=== PATIENT | male | born 1980 | race Caucasian/White ===

== ENCOUNTER 2020-09-20 03:43 | Emergency (ER) | payer MEDICAID, OTHER ==
[~2020-09-20] VITALS: Ht 172.7 cm; Wt 62.0 kg
--- NOTE | 2020-09-20 04:15 | NUR ---
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 awaiting erp eval
[2020-09-20] MEDS ORDERED: BUPIVACAINE 0.25% ONE (04:47)
[2020-09-20] MEDS ORDERED: LIDOCAINE-MPF 1%, 5ML ONE (04:47)
[2020-09-20] MEDS ORDERED: LIDOCAINE-MPF 1%, 5ML INFIL ONE (05:00)
[2020-09-20] MEDS ORDERED: BUPIVACAINE 0.25% INFIL ONE (05:00)
[2020-09-20 06:00] VITALS: BP 118/72
--- NOTE | 2020-09-20 06:13 | NUR ---
I AND D DONE BY ERP, PLAIN PACKING PLACED. DRESSED BY THIS RN, PT UNDERSTANDING OF DISCHARGE INSTRUCTIONS
== END 2020-09-20 06:15 | disposition home or self-care (01) ==
LOC: ED 05:03
DX: L02.11 Cutaneous abscess of neck (principal); F17.210 Nicotine dependence, cigarettes, uncomplicated; Z90.49 Acquired absence of other specified parts of digestive tract
CPT/HCPCS: 10060; 99283; 99406

== ENCOUNTER 2020-09-28 04:47 | Emergency (ER) | payer MEDICAID ==
[~2020-09-28] VITALS: Ht 165.1 cm; Wt 63.0 kg
[2020-09-28 04:49] VITALS: BP 129/88
--- NOTE | 2020-09-28 04:55 | NUR ---
INITIAL PT CONTACT. PT PRESENTS TO ED FOR WOUND RECHECK, RECENT I+D ON NECK. "I NEED A RX FOR ABX BECAUSE THE PILLS WERE STOLEN WITH SOME OF MY STUFF. I TOOK ABOUT 4 DAYS OF BOTH ABX". PT ALSO C/O RIGHT UPPER DENTAL PAIN. PT SITTING UPRIGHT ON GUGUADALUEP, MARIUSZ, VSS. SIGNIFICANT OTHER AT BEDSIDE. AWAITING ERP
--- NOTE | 2020-09-28 05:02 | NUR ---
ERP AT BEDSIDE
[2020-09-28] MEDS ORDERED: KETOROLAC 30 MG/1 ML ONE (05:07)
[2020-09-28] MEDS ORDERED: KETOROLAC 30 MG/1 ML IM ONE (05:30)
== END 2020-09-28 05:31 | disposition home or self-care (01) ==
LOC: ED 05:12
DX: L02.11 Cutaneous abscess of neck (principal); K02.9 Dental caries, unspecified; F17.210 Nicotine dependence, cigarettes, uncomplicated; Z90.89 Acquired absence of other organs
CPT/HCPCS: 96372; 99283; J1885

== ENCOUNTER 2021-01-11 16:48 | Inpatient (IN) | payer MEDICAID ==
[~2021-01-11] VITALS: Ht 170.2 cm; Wt 47.2 kg
[2021-01-11] MEDS ORDERED: LIDOCAINE-MPF 1%, 5ML INFIL ONE (17:30)
[2021-01-11] MEDS ORDERED: CLINDAMYCIN PMX 900MG/50ML 50 ML IVPB ONE (17:30)
[2021-01-11] MEDS ORDERED: SODIUM CHLORIDE FLUSH 10ML SYR IVF ONE (17:30)
[2021-01-11] MEDS ORDERED: SODIUM CHLORIDE 0.9% 1,000ML IVBOLUS ONE (17:30)
[2021-01-11 18:01] LABS: MEAN CORPUSCULAR HEMOGLOBIN 27.7 pg (27.5-34.5); MEAN CORPUSCULAR HGB CONC 34.3 g/dL (33.2-36.2); MEAN PLATELET VOLUME 6.7 fL (7.4-10.4); PLATELET COUNT 475 x10^3/uL (130-400); RED BLOOD COUNT 4.14 x10^6/uL (4.38-5.82); RED CELL DISTRIBUTION WIDTH 14.5 % (9.4-14.8)
[2021-01-11 18:11] LABS: ALBUMIN 3.1 g/dL (3.4-5.0); ANION GAP 8 mmol/L (5-15); CALCIUM 8.8 mg/dL (8.5-10.1); CHLORIDE 101 mmol/L (98-107)
[2021-01-11 18:12] LABS: CREATININE 0.68 mg/dL (0.7-1.3)
[2021-01-11 18:30] LABS: <PLATELET ESTIMATE> INCREASED; <PLT MORPHOLOGY> NORMAL PLT MORPH; ANISOCYTOSIS 1+; BANDS%(MANUAL) 3 % (0-7); BASOS#(MANUAL) 0.17 x10^3/uL (0-0.1); BASOS% (MANUAL) 1 % (0-1); LYMPH#(MANUAL) 1.51 x10^3/uL (1-3.4); LYMPHS% (MANUAL) 9 % (22-44); MONOS#(MANUAL) 1.01 x10^3/uL (0.3-2.7); MONOS% (MANUAL) 6 % (2-9); OVALOCYTES 1+; POLYCHROMASIA 1+; SEG#(MANUAL) 13.61 x10^3/uL (1.8-6.8); SEGS% (MANUAL) 81 % (42-75)
[2021-01-11] MEDS ORDERED: LIDOCAINE-MPF 1%, 5ML ONE (18:30)
[2021-01-11] MEDS ORDERED: CLINDAMYCIN PMX 900MG/50ML 50 ML ONE (18:30)
--- NOTE | 2021-01-11 19:05 | NUR ---
PIV PLACED BY TASK RN. IVF RUNNING. IVF ABX STARTED, 2 SETS BLOOD CX COLLECTED PRIOR TO ADMIN. ERMD RESIDENT AT BEDSIDE FOR ASSESSMENT.
--- NOTE | 2021-01-11 19:51 | NUR ---
PT AT CT
[2021-01-11] MEDS ORDERED: OMNIPAQUE 350 MG/ML, 100ML BOTTLE ONE (20:00)
[2021-01-11] MEDS ORDERED: DIPH,PERTUSS(ACELL),TET VAC/PF 0.5 ML IM-VACC ONE (20:17)
[2021-01-11] MEDS ORDERED: morphine SULFATE 10 MG/ML, 1ML ONE (20:17)
[2021-01-11] MEDS ORDERED: DIPH,PERTUSS(ACELL),TET VAC/PF NC IM-VACC ONE (20:30)
[2021-01-11] MEDS ORDERED: morphine SULFATE 10 MG/ML, 1ML IVPush ONE (20:30)
[2021-01-11] MEDS ORDERED: PROPOFOL 10 MG/ML, 20ML IVPush ONE ×2 (21:30→23:30)
[2021-01-11] MEDS ORDERED: PROPOFOL 10 MG/ML, 20ML ONE ×2 (21:40)
--- NOTE | 2021-01-11 21:59 | NUR ---
CONSENT SIGNED FOR PROCEDURAL SEDATION TO COMPLETE I&D LEFT SHOULDER. ROOM SET UP, SUCTION ON, BVM, CRASH CART AT BEDSIDE. PIV PATENT, IVF RUNNING AT TKO AT THIS TIME.
--- NOTE | 2021-01-11 22:52 | NUR ---
KEKE YAS AT BEDSIDE ADMIN PROPOFOL, TOTALY 360MG. ERMD RESIDENT CAREY PERFORMED I&D. THIS RN AT BEDSIDE MONITORED PT. SEE PROCEDURAL SEDATION PACKET FOR MORE DETAILED INFORMATION. PT STILL UNAROUSABLE AND STABLE VITALS. PT CONTINUES TO BE CONNECTED TO ALL MONITORING AND 1:1 OBSERVATION.
--- NOTE | 2021-01-11 23:24 | NUR ---
RECEIVED REPORT FROM OFFGOING RN, AND PT MOVED TO TRAUMA 2 ROOM, FOR CLOSER OBSERVATION. PT AT THIS TIME, IS ABLE TO LIFT HEAD IN BED, AND TALK WITH RN. PT IS CAOX3, AND KNOWS WHERE HE IS, HIS NAME, AND THE DATE. NO DISTRESS, AND AIRWAY INTACT, AND GOOD AEARATION AND OXYGENATION. SEDATION PAPERWORK COMPLETED AND PT OFF OF SEDATION PROCEDURE NOW. AND BACK TO COMPUTER CHARTING. PT REMAINS ON CR MONITOR, CALL LIGHT WITHIN REACH, AND SIDERAILS UP X2.
--- NOTE | 2021-01-12 00:04 | NUR ---
PT TRANSFERRED TO FLOOR VIA GURNEY, NO ACUTE DISTRESS.
[2021-01-12 00:18] VITALS: BP 154/76
[2021-01-12] MEDS ORDERED: ACETAMINOPHEN 325 MG TABLET PO PRN (00:30)
[2021-01-12] MEDS ORDERED: ONDANSETRON ODT 4 MG PO PRN (00:30)
[2021-01-12] MEDS ORDERED: POLYETHYLENE GLYCOL 17 GM PACKET PO PRN (00:30)
[2021-01-12] MEDS ORDERED: BISACODYL 10 MG SUPP PR PRN (00:30)
[2021-01-12] MEDS ORDERED: KETOROLAC 30 MG/1 ML IM PRN (00:30)
[2021-01-12] MEDS ORDERED: ALPR-585 PO (00:34)
[2021-01-12] MEDS: SODIUM CHLORIDE 0.9% 1,000 ML IV SCH ×4 (01:08→21:15)
[2021-01-12] MEDS: HEPARIN 5,000 UNITS/ML, 1ML SQ SCH ×3 (01:09→17:24)
[2021-01-12] MEDS: morphine SULFATE 10 MG/ML, 1ML IVPush PRN ×5 (01:09→21:15)
[2021-01-12] MEDS ORDERED: CLINDAMYCIN PMX 600MG/50ML 50 ML IV SCH (03:00)
[2021-01-12 03:04] VITALS: BP 154/72
[2021-01-12 07:16] VITALS: BP 146/85
[2021-01-12] MEDS ORDERED: METHADONE 10 MG TABLET PO SCH (09:00)
[2021-01-12] MEDS ORDERED: VANCOMYCIN PER PHARMACY MC PRN (09:00)
[2021-01-12] MEDS: SENNA/DOCUSATE TABLET PO SCH (09:28)
[2021-01-12] MEDS ORDERED: PHARMACOKINETIC MONITORING MC PRN (10:00)
[2021-01-12] MEDS ORDERED: VANCOMYCIN 1,200 MG in SODIUM CHLORIDE 0.9% 250 ML IV ONE (10:00)
[2021-01-12] MEDS ORDERED: PHARMACOKINETIC CONSULTATION MC ONE (10:00)
[2021-01-12] MEDS: AMPICILLIN/SULBACTAM 3 GM in SODIUM CHLORIDE 0.9% 100 ML IV SCH ×2 (13:03→17:24)
[2021-01-12 14:48] VITALS: BP 137/90
[2021-01-12 19:02] VITALS: BP 109/67
[2021-01-12] MEDS: VANCOMYCIN 1,000 MG in SODIUM CHLORIDE 0.9% 100 ML IV SCH (22:59)
[2021-01-13 01:03] VITALS: BP 113/72
[2021-01-13] MEDS: HEPARIN 5,000 UNITS/ML, 1ML SQ SCH ×3 (01:03→18:19)
[2021-01-13] MEDS: morphine SULFATE 10 MG/ML, 1ML IVPush PRN ×5 (04:02→20:27)
[2021-01-13] MEDS: SODIUM CHLORIDE 0.9% 1,000 ML IV SCH ×2 (05:37→16:00)
[2021-01-13] MEDS: AMPICILLIN/SULBACTAM 3 GM in SODIUM CHLORIDE 0.9% 100 ML IV SCH ×5 (05:37→18:19)
[2021-01-13 06:11] LABS: BASOPHILS % (AUTO) 1 % (0-1); EOSINOPHILS % (AUTO) 4 % (1-7); LYMPHOCYTES % (AUTO) 31 % (22-44); MEAN CORPUSCULAR HEMOGLOBIN 28.1 pg (27.5-34.5); MEAN CORPUSCULAR HGB CONC 34.6 g/dL (33.2-36.2); MEAN PLATELET VOLUME 6.8 fL (7.4-10.4); MONOCYTES % (AUTO) 11 % (2-9); NEUTROPHILS % (AUTO) 54 % (42-75); PLATELET COUNT 396 x10^3/uL (130-400); RED BLOOD COUNT 3.64 x10^6/uL (4.38-5.82); RED CELL DISTRIBUTION WIDTH 14.3 % (9.4-14.8)
[2021-01-13] MEDS: SENNA/DOCUSATE TABLET PO SCH (08:27)
[2021-01-13] MEDS: METHADONE 40 MG TABLET.SOL PO SCH (08:27)
[2021-01-13 09:13] VITALS: BP 118/73
[2021-01-13] MEDS: VANCOMYCIN 1,000 MG in SODIUM CHLORIDE 0.9% 100 ML IV SCH ×2 (10:29→22:41)
[2021-01-13] MEDS: ALPRazolam 1MG TAB PO PRN (12:30)
[2021-01-13 15:18] VITALS: BP 109/73
[2021-01-13 19:29] VITALS: BP 104/67
[2021-01-14] MEDS: AMPICILLIN/SULBACTAM 3 GM in SODIUM CHLORIDE 0.9% 100 ML IV SCH ×5 (00:06→23:50)
[2021-01-14 00:10] VITALS: BP 106/70
[2021-01-14] MEDS: ALPRazolam 1MG TAB PO PRN ×2 (00:52→13:48)
[2021-01-14] MEDS: morphine SULFATE 10 MG/ML, 1ML IVPush PRN ×5 (00:53→23:50)
[2021-01-14] MEDS: SODIUM CHLORIDE 0.9% 1,000 ML IV SCH ×3 (00:53→20:08)
[2021-01-14] MEDS: HEPARIN 5,000 UNITS/ML, 1ML SQ SCH ×4 (00:53→22:40)
[2021-01-14 06:54] VITALS: BP 133/87
[2021-01-14] MEDS: SENNA/DOCUSATE TABLET PO SCH (08:40)
[2021-01-14] MEDS: METHADONE 40 MG TABLET.SOL PO SCH (09:45)
[2021-01-14] MEDS: VANCOMYCIN 1,000 MG in SODIUM CHLORIDE 0.9% 100 ML IV SCH ×2 (10:59→22:40)
[2021-01-14 14:26] VITALS: BP 122/79
[2021-01-14 19:16] VITALS: BP 108/72
[2021-01-15 01:51] VITALS: BP 124/80
[2021-01-15] MEDS: AMPICILLIN/SULBACTAM 3 GM in SODIUM CHLORIDE 0.9% 100 ML IV SCH ×2 (05:50→12:23)
[2021-01-15] MEDS: morphine SULFATE 10 MG/ML, 1ML IVPush PRN (06:26)
[2021-01-15 06:42] LABS: CREATININE 0.56 mg/dL (0.7-1.3)
[2021-01-15 07:15] VITALS: BP 128/78
[2021-01-15] MEDS ORDERED: METHADONE 10 MG TABLET ONE (09:47)
[2021-01-15] MEDS: SENNA/DOCUSATE TABLET PO SCH (09:51)
[2021-01-15] MEDS: HEPARIN 5,000 UNITS/ML, 1ML SQ SCH (09:53)
[2021-01-15] MEDS: VANCOMYCIN 1,000 MG in SODIUM CHLORIDE 0.9% 100 ML IV SCH (09:54)
[2021-01-15] MEDS: ALPRazolam 1MG TAB PO PRN (10:20)
[2021-01-15] MEDS: METHADONE 40 MG TABLET.SOL PO SCH (10:20)
[2021-01-15] MEDS: SODIUM CHLORIDE 0.9% 1,000 ML IV SCH (10:21)
[2021-01-15] MEDS ORDERED: NICOTINE 21 MG/24 HR PATCH.TD24 TD SCH (11:00)
[2021-01-15] MEDS ORDERED: AMOX1TAB12 PO (12:29)
[2021-01-15] MEDS ORDERED: VANCOMYCIN 1,000 MG in SODIUM CHLORIDE 0.9% 100 ML IV SCH (21:00)
== END 2021-01-15 12:47 | disposition left against medical advice (07) | DRG 872 ==
LOC: ED 20:45 → 3N 01-12 00:05
PROVIDERS: ADMIT Internal Medicine; ATTEND Internal Medicine
PROC: 0X990ZZ Drainage of Left Upper Arm, Open Approach (ICD-10-PCS; principal; 2021-01-11)
DX: A41.9 Sepsis, unspecified organism (principal); F11.20 Opioid dependence, uncomplicated; F13.20 Sedative, hypnotic or anxiolytic dependence, uncomplicated; L02.414 Cutaneous abscess of left upper limb; L03.114 Cellulitis of left upper limb; D50.9 Iron deficiency anemia, unspecified; F12.90 Cannabis use, unspecified, uncomplicated; F15.90 Other stimulant use, unspecified, uncomplicated; F17.210 Nicotine dependence, cigarettes, uncomplicated; Z53.29 Procedure and treatment not carried out because of patient's decision for other reasons; F32.9 Major depressive disorder, single episode, unspecified; F41.9 Anxiety disorder, unspecified; Z79.899 Other long term (current) drug therapy; Z86.14 Personal history of Methicillin resistant Staphylococcus aureus infection; Z90.49 Acquired absence of other specified parts of digestive tract; Z71.6 Tobacco abuse counseling
CPT/HCPCS: 10060; 36415; 80048; 80202; 82040; 82565; 82728; 83540; 83550; 83605; 85025; 87040; 87070; 87205; 90715; 99291; G0378; J0295; J1644; J2704; J3370; Q9967; J2270; J7030; J7050

== ENCOUNTER 2021-04-21 00:52 | Emergency (ER) | payer MEDICAID ==
[~2021-04-21] VITALS: Ht 170.2 cm; Wt 68.9 kg
[~2021-04-21 00:52] MED LIST: ALPR-585 PO; AMOX1TAB12 PO
[2021-04-21 00:59] VITALS: BP 128/78
[2021-04-21] MEDS ORDERED: DEXAMETHASONE 4 MG TABLET ONE (01:03)
[2021-04-21] MEDS ORDERED: ACETAMINOPHEN 500 MG TABLET ONE (01:03)
[2021-04-21] MEDS ORDERED: DEXAMETHASONE 4 MG TABLET PO ONE (01:30)
[2021-04-21] MEDS ORDERED: ACETAMINOPHEN 500 MG TABLET PO ONE (01:30)
== END 2021-04-21 02:49 | disposition home or self-care (01) ==
LOC: ED 01:00
DX: U07.1 COVID-19 (principal); B34.9 Viral infection, unspecified; R07.89 Other chest pain; F17.210 Nicotine dependence, cigarettes, uncomplicated
CPT/HCPCS: 71045; 99284; 99406; U0003; U0005